=== PATIENT | female | born 2000 | race Caucasian/White ===

== ENCOUNTER 2022-02-27 10:03 | Emergency (ER) | payer OTHER, SELFPAY ==
[2022-02-27 10:30] VITALS: BP 132/83; PULSE 93; RESP 20; TEMP 36.6; O2SAT 99
--- NOTE | 2022-02-27 10:36 | ED.URI ---
HPI - URI/Sore Throat General Chief Complaint: Upper Respiratory Infection Stated Complaint: cold symptoms Time Seen by Provider: 02/27/22 10:36 Source: patient Mode of arrival: ambulatory Limitations: no limitations History of Present Illness HPI Narrative: 21-year-old female presents with complaint of runny nose, postnasal drainage, sore throat, pain to both ears, fatigue, body aches for 6 days. Afebrile. Not taking any medications other than ibuprofen to treat her symptoms. Is worried about interactions with her thyroid medication. Denies shortness of breath and chest pain. Denies nausea vomiting diarrhea. All systems reviewed and negative except as noted above. Related Data Home Medications Medication Instructions Recorded Confirmed levothyroxine 125 mcg tablet 125 mcg PO DAILY 02/27/22 02/27/22 needle (disp) 18 G 18 gauge x 1 02/27/22 02/27/22 (BD Regular [place]) needle (disp) 25 gauge 25 gauge x 02/27/22 02/27/22 5/8 (BD Regular [place]vel [place]) testosterone cypionate 200 mg/mL 0.13 mg IM WEEKLY 02/27/22 02/27/22 intramuscular oil Allergies Allergy/AdvReac Type Severity Reaction Status Date / Time diphenhydramine AdvReac Intermediate Palpitation Verified 02/27/22 10:54 [From Jonathan] s Review of Systems Review of Systems: CONSTITUTIONAL: Denies fever, chills, or sweats. EYES: Denies visual changes, redness, or discharge. ENT: Reports rhinorrhea, congestion, sore throat, and otalgia. CARDIOVASCULAR: Denies chest pain, palpitations, or edema. RESPIRATORY: Denies cough or dyspnea. GASTROINTESTINAL: Denies abdominal pain, nausea, vomiting, or diarrhea. GENITOURINARY: Denies dysuria or hematuria. SKIN: Denies rash or itching. MUSCULOSKELETAL: Denies back pain, joint pain, or myalgia. NEUROLOGIC: Denies headache, numbness, or weakness. PSYCHIATRIC: Denies anxiety or depression. All other systems reviewed are negative, except as documented in HPI. PMFSH Comments At time of signature, agree with nursing past medical, surgical, social and family history. There is no relevant family history pertinent to the presenting complaint. Exam Narrative: GENERAL: This is a well-nourished, well-developed patient, in no apparent distress. HEAD: normocephalic, atraumatic. EYES: PERRL. Sclera clear/white. Vision is grossly intact. EARS: External ears normal, auditory canals clear and without drainage, clear fluid bilateral TMs without perforation or erythema. NOSE: External nose normal with Clear nasal drainage, no erythema or swelling to nares. THROAT: Mucous membranes moist, Mild erythema, postnasal drainage. NECK: Neck supple, non-tender without lymphadenopathy, masses or thyromegaly. CARDIOVASCULAR: Regular rate and rhythm without murmurs, gallops, or rubs. RESPIRATORY: Clear to auscultation. Breath sounds equal bilaterally. No wheezes, rales, or rhonchi. SKIN: warm, Dry, intact with no suspicious lesions or rash, good texture and turgor. NEURO: awake, alert, and oriented to person, place and time. There were no obvious focal neurologic abnormalities. EXTREMITIES: No joint tenderness, effusion, or edema noted. Course Course Level of Care: Express Care Visit Vital Signs Vital signs: Vital Signs Temperature 36.6 C 02/27/22 10:30 Pulse Rate 93 02/27/22 10:30 Respiratory Rate 20 02/27/22 10:30 Blood Pressure 132/83 02/27/22 10:30 Pulse Oximetry 99 02/27/22 10:30 Oxygen Delivery Room Air 02/27/22 10:30 Temperature 36.6 C 02/27/22 10:30 Pulse Rate 93 02/27/22 10:30 Respiratory Rate 20 02/27/22 10:30 Blood Pressure 132/83 02/27/22 10:30 Pulse Oximetry 99 02/27/22 10:30 Oxygen Delivery Room Air 02/27/22 10:30 Reviewed MDM - URI/Sore Throat MDM Narrative Medical decision making narrative: Patient is aware of diagnosis, understands and agrees to treatment plan. Anticipatory guidance given. Patient agrees to follow-up as directed an
== END 2022-02-27 11:10 | disposition home or self-care (01) ==
PROVIDERS: Emergency Provider Nurse Practitioner Family
DX: J01.90 Acute sinusitis, unspecified (principal); Z20.822 Contact with and (suspected) exposure to COVID-19; E03.9 Hypothyroidism, unspecified
CPT/HCPCS: 87081; 87426; 87880; 99213; C9803; G0463

== ENCOUNTER 2022-11-16 12:58 | Emergency (ER) | payer OTHER, SELFPAY ==
--- NOTE | 2022-11-16 13:00 | ED.NAVMDI ---
HPI - Nausea/Vomiting/Diarrhea General Chief complaint: Nausea/Vomiting/Diarrhea Stated complaint: Vomiting Time Seen by Provider: 11/16/22 13:21 Source: patient, RN notes reviewed and old records reviewed Mode of arrival: ambulatory Limitations: no limitations History of Present Illness HPI Narrative: 22-year-old who identifies as a male presents for nausea and vomiting x2 days. States she has vomited a couple of times yesterday and day before. Has had intermittent epigastric discomfort without chest pain, generalized abdominal pain. No pain currently. No treatment prior to arrival Denies any other symptoms. Denies urinary symptoms. Denies any chest pain, abdominal pain. Related Data Home Medications Medication Instructions Recorded Confirmed levothyroxine 125 mcg tablet 125 mcg PO DAILY 02/27/22 11/16/22 needle (disp) 18 G 18 gauge x 1 02/27/22 11/16/22 (BD Regular Bevel [place]) needle (disp) 25 gauge 25 gauge x 02/27/22 11/16/22 5/8 (BD Regular [place]vel [place]) testosterone cypionate 200 mg/mL 0.13 mg IM WEEKLY 02/27/22 11/16/22 intramuscular oil fluticasone propionate 50 2 spray intranasal DAILY 11/16/22 11/16/22 mcg/actuation nasal spray,suspension Allergies Allergy/AdvReac Type Severity Reaction Status Date / Time diphenhydramine AdvReac Intermediate Palpitation Verified 11/16/22 12:59 [From Jonathan] hilaria Review of Systems Review of Systems: All systems reviewed & are unremarkable except as noted in HPI and below Constitutional: Constitutional: Reports no additional constitutional complaints Eyes: Eyes: Reports no additional eye complaints ENT: Reports system reviewed and no additional complaints, except as documented Cardiovascular: Cardiovascular: Reports no additional cardiovascular complaints, Denies chest pain and Denies dyspnea Respiratory: Respiratory: Reports no additional respiratory complaints, Denies chest congestion, Denies cough and Denies dyspnea Gastrointestinal: Gastrointestinal: Reports as per HPI, Denies abdominal pain, Denies diarrhea, Reports nausea and Reports vomiting Musculoskeletal: Musculoskeletal: Reports no additional musculoskeletal complaints Integumentary/Breasts: Skin/Breast: Reports system reviewed and no additional complaints, except as docu Neurologic: Reports system reviewed and no additional complaints, except as documented Psychiatric: Psychiatric: Reports no additional psychiatric complaints Allergic/Immunologic: Allergic/Immunologic: Reports no additional allergic/immunologic complaints PMFSH Comments At the time of my signature, I reviewed and agree with the nursing past medical, surgical, social, and family history. There is no relevant family history pertinent to the patient complaint. Exam Const: General: cooperative, healthy appearing, comfortable, no acute distress, well developed, alert and well nourished Nutritional Appearance: well nourished and obese Orientation/consciousness: patient oriented x3 Limitations: no limitations HENMT: Head: normal to inspection Ears: hearing grossly normal bilaterally and external ears normal Face/Nose/Sinus: Normal external nose present, Normal nares present, Normal nasal mucous membranes and turbinates present and normal facial exam Face and sinus: normal facial exam Mouth: Yes Normal oral and palatal mucosa present, Yes lip normal and Yes moist mucous membranes Throat: posterior oropharynx normal, uvula midline and other (Postnasal drip) Eyes: General: appearance normal, both eyes and all related structures Alignment and Position: alignment normal Periorbital: periorbital findings normal Pupils: Equal, round and reactive pupils present EOM: EOMs intact bilaterally Neck: Neck: normal visual inspection, full ROM, no lymphadenopathy and no meningeal signs Chest: Chest palpation & inspection: normal inspection of the chest Resp: Effort & Inspection: normal respiratory effort and able to speak
[2022-11-16 13:17] VITALS: BP 147/80; PULSE 108; RESP 18; TEMP 36.6; O2SAT 100
== END 2022-11-16 13:33 | disposition home or self-care (01) ==
PROVIDERS: Emergency Provider Nurse Practitioner
DX: R11.2 Nausea with vomiting, unspecified (principal); Z20.822 Contact with and (suspected) exposure to COVID-19; E03.9 Hypothyroidism, unspecified
CPT/HCPCS: 87426; 99213; C9803; G0463

== ENCOUNTER 2024-08-01 11:37 | Outpatient (CLI) | payer OTHER, SELFPAY ==
--- NOTE | ~2024-08-01 | US_ITS ---
EXAMINATION: US pelvic complete INDICATION: Irregular periods. Excessive frequent menstruation. Comparison:No prior studies for comparison. TECHNIQUE: Multiple transabdominal and endovaginal sonographic images of the pelvis performed. FINDINGS: The uterus measures 7.8 x 3.8 x 4.6 cm. The endometrial complex measures 3 mm. The right ovary measures 2.5 x 3.6 x 2.1 cm and the left ovary measures 4.2 x 3.6 x 2.1 cm. There ar e small follicles in each ovary. Normal doppler signal in both ovaries. There is no free fluid in the pelvis. There are no abnormal masses seen on either side. IMPRESSION: 1. Unremarkable pelvic ultrasound. Reviewed, dictated and finalized at location A.
== END 2024-08-01 11:38 | disposition home or self-care (01) ==
LOC: MICIMG 11:38
PROVIDERS: PCP Obstetrics & Gynecology Gynecology; Visit Provider Obstetrics & Gynecology Gynecology
DX: N92.6 Irregular menstruation, unspecified (principal)
CPT/HCPCS: 76856